=== PATIENT | male | born 1945 | race Caucasian/White ===

== ENCOUNTER 2021-04-06 15:05 | Outpatient (CLI) | payer MEDICARE, OTHER, SELFPAY ==
--- NOTE | 2021-04-06 15:11 | US_ITS ---
WS: [id number] SCROTAL ULTRASOUND EXAMINATION CLINICAL INFORMATION: MASS OF LEFT TESTICLE COMPARISON: None. FINDINGS: TESTES Scrotal skin thickening worse in the left. Normal in size and echotexture, without focal lesion. Slightly increased vascularity left testicle consistent with mild orchitis Right testes size: 3.1 cm x 2.7 cm x 2.4 cm. Left testes size: 3.7 cm x cm x cm. EPIDIDYMIDES Left spermatocele measuring 12 x 6 mm. Small left spermatocele measuring 2.4 x 6.9 mm Enlarged left e pididymis with edema and increased vascularity. Additional enlargement of the right epididymis suspicious for right epididymitis . HYDROCELE Moderate bilateral hydroceles with debris on the left. VARICOCELE None. OTHER FINDINGS None. US/US scrotum [id number] IMPRESSION: 1. Left scrotal skin thickening 2. Moderate bilateral hydroceles worse in the left with debris. 3. Enlarged left epididymis with increased vascularity consistent with epididy mitis and mild left orchitis. 4. Enlarged right epididymis suspicious for epididymitis. 5. Normal right testicle. 6. Left spermatocele measuring 1.2 x 0.6 cm
== END 2021-04-06 15:06 | disposition home or self-care (01) ==
LOC: RAD 15:10
PROVIDERS: Visit Provider Family Medicine
DX: N50.89 Other specified disorders of the male genital organs (principal); N43.3 Hydrocele, unspecified; N43.41 Spermatocele of epididymis, single
CPT/HCPCS: 76870

== ENCOUNTER 2022-05-17 12:53 | Emergency (ER) | payer MEDICARE, OTHER, SELFPAY ==
[2022-05-17 12:58] VITALS: BP 195/88; PULSE 58; RESP 18; TEMP 36.8; O2SAT 98; BMI 27.1
[2022-05-17 13:02] VITALS: BP 169/77; PULSE 58; RESP 18; TEMP 36.8; O2SAT 98
--- NOTE | 2022-05-17 13:36 | XRR_ITS ---
PROCEDURE INFORMATION: Exam: XR Chest Exam date and time: 05/17/2022 1:42 PM Age: 77 years old Clinical indication: Other: Hypertension TECHNIQUE: Imaging protocol: Radiologic exam of the chest. Views: 1 view. COMPARISON: No relevant prior studies available. FINDINGS: Lungs: Minimal scarring left mid lung. Clear right lung. Pleural spaces: Unremarkable. No pleural effusion. No pneumothorax. Heart/Mediastinum: Unremarkable. No cardiomegaly. Bones/joints: Unremarkable. XR/XR chest 1V portable [id number] IMPRESSION: No acute findings. The
--- NOTE | 2022-05-17 13:36 | W.ED.GENADLT ---
Documented by User: MARCY Hanson 05/17/22 16:11 HPI - General Adult General: Chief complaint: General Medical Stated complaint: High blood pressure, soreness in chest, numbness Time Seen by Provider: 05/17/22 13:12 Source: patient and family Mode of arrival: ambulatory Limitations: no limitations History of Present Illness: Patient is a very nice 77-year-old male who presents to ED today with a complaint of elevated blood pressures that have been present over the past several months. Patient states he takes metoprolol, amlodipine, lisinopril daily for hypertension. He states over the past several months blood pressure consistently is running 150s/70s. Patient is very compliant and checks his blood pressure daily and follows up every 30 days with his primary care provider at [facility] in [place]. Patient states earlier today he had an episode that lasted 2 to 3 minutes where his right shoulder felt sore and he had some paresthesias from his elbow to the wrist. He states he was using the extremity when symptoms occurred and he states they went away with rest. He currently is not complaining of any paresthesias, numbness, tingling, loss of sensation, or weakness to the arm or any of the other extremities. Blood pressure upon arrival was 190s/80s. With rest and during my initial examination blood pressure is currently 160s/70s. He complains of a very minor headache. When asked about chest pain he states his chest feels a little sore but does not complain of pain. No shortness of breath or difficulty breathing. Onset (ago): hour(s) Severity: mild Pain Consistency: now resolved Associated symptoms: Reports chest pain ( soreness ); Deny dyspnea, headache(s), malaise, rash, palpitations or syncope Treatments prior to arrival: none Review of Systems Const: Denies: fever(s), chills, body aches, fatigue or malaise Eyes: Denies: change in vision or blurry vision Card: Reports: chest pain ( soreness ); Denies: palpitations, irregular heart rhythm, edema, swelling of feet/ankles, lightheadedness, syncope, pre-syncope, dyspnea on exertion, orthopnea, leg pain with exertion or acrocyanosis Resp: Denies: dyspnea, productive cough, non-productive cough, wheezing, pain on inspiration, hemoptysis or chest congestion GI: Denies: abdominal pain : Denies: flank pain, dysuria or hematuria Musc: Reports: joint pain (reports R shoulder feels sore-hx of arthritis ); Denies: neck pain, back pain, extremity pain, extremity swelling, joint swelling, joint redness, joint warmth or limited range of motion Skin/Breast: Denies: rash Neuro: Reports: sensory changes (2-3 mins from R elbow to wrist; gone now); Denies: headache(s), weakness in extremities, lack of coordination, difficulty walking or dizziness Physical Exam Const: COMMON NORMALS: no acute distress, average body habitus, patient oriented x3, no limitations, healthy appearing, alert and well nourished GENERAL APPEARANCE: cooperative ORIENTATION/CONSCIOUSNESS: Yes awake, Yes oriented to person, Yes oriented to place and Yes oriented to time HENMT: COMMON NORMALS: normocephalic and atraumatic HEAD & SCALP: normal to inspection, normocephalic and atraumatic Eye: GENERAL EYE: appearance normal, both eyes and all related structures Neck/C-Spine: COMMON NORMALS: full ROM, no lymphadenopathy, supple and no meningeal signs Chest: COMMONS NORMALS: normal inspection of the chest and normal palpation of entire chest wall Resp: COMMON NORMALS: normal respiratory effort and clear to auscultation bilaterally AUSCULTATION: clear to auscultation bilaterally Cardio: COMMON NORMALS: regular rate and regular rhythm RATE: regular rate RHYTHM: regular rhythm GI: COMMON NORMALS: Normal to inspection, nondistended, normoactive bowel sounds present, Soft to palpation, non-tender, No hepatosplenomegaly present and no masses PALPATION: Yes Soft to palpation and Yes No hepatosplenomegaly present : COMMON NORMALS: Yes no CVA tenderness BLADDER/KIDNEY EXAM: Yes no CVA tenderness Back/Pelvis: COMMON NORMALS: no CVA tenderness, thoracic and lumbar spine normal to inspection, no thoracic nor lumbar tenderness and thoraco-lumbar ROM normal Extremity: COMMON NORMALS: normal to inspection, full ROM, capillary refill normal, no joint enlargement, no clubbing, cyanosis or edema, no calf tenderness and no pedal edema GENERAL: Yes normal exam except as noted Neuro: PEYTON COMA SCALE: document GCS findings [facility] coma scale eye opening: Spontaneous [facility] coma scale verbal response: Orientated [place] coma scale motor response: Obey commands [facility] coma scale total score: 15 COMMON NORMALS: patient oriented x3, CN's II-XII intact bilaterally, moves all extremities, no focal motor deficits, no sensory deficits noted and gait normal SENSORIUM/ORIENTATION: Yes alert, Yes oriented to person, Yes oriented to place and Yes oriented to time MENINGEAL SIGNS: Yes no meningeal signs SPEECH: speech normal SENSORY EXAM: Yes other (normal) MOTOR EXAM: 5/5 motor strength present throughout Skin: COMMON NORMALS: no rashes or lesions noted GENERAL SKIN EXAM: no rashes or lesions noted Course Vital Signs: Vital signs: Vital Signs Temperature 98.2 F 05/17/22 14:57 Pulse Rate 57 L 05/17/22 17:22 Respiratory Rate 16 05/17/22 17:22 Blood Pressure 149/77 05/17/22 17:22 Pulse Oximetry 97 05/17/22 17:22 Oxygen Delivery Me thod 05/17/22 17:22 MDM - General Adult Medical Decision Making Patient was initially started from one of our vertical flow rooms as there were no medical beds available. Once a bed became available patient was moved and a physician will assume care. Lab Data : 05/17/22 13:50 05/17/22 13:50 Radiology Impressions Chest X-Ray 05/17/22 13:36 IMPRESSION: No acute findings. The Laboratory Results WBC 6.9 10^3/uL (4.0-10.0) 05/17/22 13:50 RBC 4.87 10^6/uL (4.1-5.3) 05/17/22 13:50 Hgb 14.5 g/dL (11.7-16.6) 05/17/22 13:50 Hct 43.3 % (42.0-52.0) 05/17/22 13:50 MCV 88.9 fl (80-94) 05/17/22 13:50 MCH 29.8 pg (28.0-34.0) 05/17/22 13:50 MCHC 33.5 g/dL (30.0-36.0) 05/17/22 13:50 RDW 12.8 % (12.1-15.1) 05/17/22 13:50 Plt Count 315 10^3/cmm (130-400) 05/17/22 13:50 MPV 9.6 fL (7.4-10.4) 05/17/22 13:50 Neut % (Auto) 45.0 % 05/17/22 13:50 Lymph % (Auto) 42.4 % 05/17/22 13:50 Alpine % (Auto) 7.8 % 05/17/22 13:50 Eos % (Auto) 3.8 % 05/17/22 13:50 Baso % (Auto) 0.9 % 05/17/22 13:50 Neut # (Auto) 3.11 10^3/uL (1.8-7.7) 05/17/22 13:50 Lymph # (Auto) 2.9 10^3/uL (0.8-4.8) 05/17/22 13:50 [place]pine # (Auto) 0.5 10^3/uL (0.2-0.9) 05/17/22 13:50 Eos # (Auto) 0.3 10^3/uL (0.0-0.8) 05/17/22 13:50 Baso # (Auto) 0.1 10^3/uL (0.0-0.1) 05/17/22 13:50 Nucleated RBC % (auto) 0 % 05/17/22 13:50 Nucleated RBCs # 0.0 /100WBC 05/17/22 13:50 Sodium 139 mmol/L (136-145) 05/17/22 13:50 Potassium 4.2 mmol/L (3.5-5.1) 05/17/22 13:50 Chloride 101 mmol/L (98-107) 05/17/22 13:50 Carbon Dioxide 27 mmol/L (22-29) 05/17/22 13:50 Anion Gap 15.2 (5-19) 05/17/22 13:50 BUN 21 mg/dL (8-23) 05/17/22 13:50 Creatinine 1.2 mg/dL (0.7-1.2) 05/17/22 13:50 GFR Calculation Not Reportable 05/17/22 13:50 Glucose 88 mg/dL (65-115) 05/17/22 13:50 Calculated Osmolality 290 mOsm/kg (285-295) 05/17/22 13:50 Calcium 9.3 mg/dL (8.5-10.5) 05/17/22 13:50 Total Bilirubin 0.3 mg/dL (0.15-1.2) 05/17/22 13:50 AST 20 U/L (0-40) 05/17/22 13:50 ALT 16 U/L (0-41) 05/17/22 13:50 Alkaline Phosphatase 62 U/L (40-130) 05/17/22 13:50 Troponin T Baseline 21 ng/L (0-15) H 05/17/22 13:50 Troponin T 120 Minute 17.27 ng/L (0-15) H 05/17/22 15:33 Delta Troponin T -3.73 ABS# (0-10) L 05/17/22 15:33 Total Protein 7.6 g/dL (6.6-8.7) 05/17/22 13:50 Albumin 4.6 g/dL (3.5-5.2) 05/17/22 13:50 Globulin 3.0 g/dL (1.3-4.6) 05/17/22 13:50 Urine Color Yellow (Yellow) 05/17/22 13:40 Urine Appearance Clear (CLEAR) 05/17/22 13:40 Urine pH 6 (5-7) 05/17/22 13:40 Ur Specific [place] 1.005 (1.005-1.030) 05/17/22 13:40 Urine Protein Neg (Negative) 05/17/22 13:40 Urine Glucose (UA) Norm (Normal) 05/17/22 13:40 Urine Ketones Negative (Negative) 05/17/22 13:40 Urine Blood Neg (Negative) 05/17/22 13:40 Urine Nitrate Negative (Negative) 05/17/22 13:40 Urine Bilirubin Neg (Negative) 05/17/22 13:40 Urine Urobilinogen Norm mg/dL (Negative) 05/17/22 13:40 Ur Leukocyte Esterase Negative (Negative) 05/17/22 13:40 Discharge Plan Discharge Patient Disposition: Home Clinical Impression: Benign essential HTN, Atypical chest pain Condition: Stable Prescriptions: New hydrochlorothiazide 25 mg tablet 25 mg PO DAILY Qty: 14 0RF No Action fenofibrate micronized 134 mg capsule 134 mg PO QAM amlodipine 10 mg tablet 10 mg PO QAM ibuprofen 200 mg Tablet 600 mg PO QAM omeprazole 20 mg capsule,delayed release(DR/EC) 20 mg PO QAM metoprolol succinate 25 mg tablet extended release 24 hr 25 mg PO QAM lisinopril 40 mg tablet 40 mg PO QAM Flonase 50 mcg/actuation [place],Suspension 2 spray INTRANASAL DAILY Rx Instructions: administer into each nostril loratadine 10 mg tablet 10 mg PO QAM Vitamin D3 25 mcg (1,000 unit) Tablet 25 mcg PO QAM Tart Romero Extract 1,000 mg Capsule 1,000 mg PO QAM Discharge Orders: Discharge ED (Routine); Ordered 05/17/22 Ordered By: Miguel Fontanez Patient Instructions: Opioid Safety Activity Restrictions/Additional Instructions: Continue all previously prescribed medications and add hydrochlorothiazide 25 mg once daily. Case management make arrangements for her to have an outpatient cardiac stress test. Follow-up with your primary care doctor within the next 7 to 10 days to recheck your blood pressure and recheck basic metabolic profile since starting the hydrochlorothiazide. Return if you have further problems. Coding Level of Care Code ED Woven [employer] Sh[employer] Assembler for Chg Fwd Exam Comprehensive Documented by User: Miguel Fontanez DO 05/18/22 06:08 HPI - General Adult General: Chief complaint: General Medical Stated complaint: High blood pressure, soreness in chest, numbness Time Seen by Provider: 05/17/22 13:12 History of Present Illness: Patient is a very nice 77-year-old male who presents to ED today with a complaint of elevated blood pressures that have been present over the past several months. Patient states he takes metoprolol, amlodipine, lisinopril daily for hypertension. He states over the past several months blood pressure consistently is running 150s/70s. Patient is very compliant and checks his blood pressure daily and follows up every 30 days with his primary care provider at [facility] in [place]. Patient states earlier today he had an episode that lasted 2 to 3 minutes where his right shoulder felt sore and he had some paresthesias from his elbow to the wrist. He states he was using the extremity when symptoms occurred and he states they went away with rest. He currently is not complaining of any paresthesias, numbness, tingling, loss of sensation, or weakness to the arm or any of the other extremities. Blood pressure upon arrival was 190s/80s. With rest and during my initial examination blood pressure is currently 160s/70s. He complains of a very minor headache. When asked about chest pain he states his chest feels a little sore but does not complain of pain. No shortness of breath or difficulty breathing. 77-year-old male who was initially seen by the midlevel. Presents complaining of elevated blood pressure. He had brief episode of chest discomfort. He is complaining more of discomfort in his arm. Particularly when he raises left arm he had pain shooting down the arm. Although this is resolved he does have a minor headache at this time. He has not noticed any chest pain with exertion. Physical Exam Neuro: PEYTON COMA SCALE: document GCS findings [place] coma scale total score: 15 Course Vital Signs: Vital signs: Vital Signs Temperature 98.2 F 05/17/22 14:57 Pulse Rate 57 L 05/17/22 17:22 Respiratory Rate 16 05/17/22 17:22 Blood Pressure 149/77 05/17/22 17:22 Pulse Oximetry 97 05/17/22 17:22 Oxygen Delivery Me thod 05/17/22 17:22 MDM - General Adult Medical Decision Making Patient was initially started from one of our vertical flow rooms as there were no medical beds available. Once a bed became available patient was moved and a physician will assume care. EKG labs and chest x-ray reviewed as found on the chart. We will start the patient on hydrochlorothiazide and have him follow-up with his primary care doctor within the next week to recheck blood pressure and BMP. Return to the emergency room has any recurrence of symptoms. Medical Records I reviewed the patient's medical records. Lab Data I reviewed the patient's lab results. : 05/17/22 13:50 05/17/22 13:50 Radiology Impressions Chest X-Ray 05/17/22 13:36 IMPRESSION: No acute findings. The Laboratory Results WBC 6.9 10^3/uL (4.0-10.0) 05/17/22 13:50 RBC 4.87 10^6/uL (4.1-5.3) 05/17/22 13:50 Hgb 14.5 g/dL (11.7-16.6) 05/17/22 13:50 Hct 43.3 % (42.0-52.0) 05/17/22 13:50 MCV 88.9 fl (80-94) 05/17/22 13:50 MCH 29.8 pg (28.0-34.0) 05/17/22 13:50 MCHC 33.5 g/dL (30.0-36.0) 05/17/22 13:50 RDW 12.8 % (12.1-15.1) 05/17/22 13:50 Plt Count 315 10^3/cmm (130-400) 05/17/22 13:50 MPV 9.6 fL (7.4-10.4) 05/17/22 13:50 Neut % (Auto) 45.0 % 05/17/22 13:50 Lymph % (Auto) 42.4 % 05/17/22 13:50 [place] % (Auto) 7.8 % 05/17/22 13:50 Eos % (Auto) 3.8 % 05/17/22 13:50 Baso % (Auto) 0.9 % 05/17/22 13:50 Neut # (Auto) 3.11 10^3/uL (1.8-7.7) 05/17/22 13:50 Lymph # (Auto) 2.9 10^3/uL (0.8-4.8) 05/17/22 13:50 [place] # (Auto) 0.5 10^3/uL (0.2-0.9) 05/17/22 13:50 Eos # (Auto) 0.3 10^3/uL (0.0-0.8) 05/17/22 13:50 Baso # (Auto) 0.1 10^3/uL (0.0-0.1) 05/17/22 13:50 Nucleated RBC % (auto) 0 % 05/17/22 13:50 Nucleated RBCs # 0.0 /100WBC 05/17/22 13:50 Sodium 139 mmol/L (136-145) 05/17/22 13:50 Potassium 4.2 mmol/L (3.5-5.1) 05/17/22 13:50 Chloride 101 mmol/L (98-107) 05/17/22 13:50 Carbon Dioxide 27 mmol/L (22-29) 05/17/22 13:50 Anion Gap 15.2 (5-19) 05/17/22 13:50 BUN 21 mg/dL (8-23) 05/17/22 13:50 Creatinine 1.2 mg/dL (0.7-1.2) 05/17/22 13:50 GFR Calculation Not Reportable 05/17/22 13:50 Glucose 88 mg/dL (65-115) 05/17/22 13:50 Calculated Osmolality 290 mOsm/kg (285-295) 05/17/22 13:50 Calcium 9.3 mg/dL (8.5-10.5) 05/17/22 13:50 Total Bilirubin 0.3 mg/dL (0.15-1.2) 05/17/22 13:50 AST 20 U/L (0-40) 05/17/22 13:50 ALT 16 U/L (0-41) 05/17/22 13:50 Alkaline Phosphatase 62 U/L (40-130) 05/17/22 13:50 Troponin T Baseline 21 ng/L (0-15) H 05/17/22 13:50 Troponin T 120 Minute 17.27 ng/L (0-15) H 05/17/22 15:33 Delta Troponin T -3.73 ABS# (0-10) L 05/17/22 15:33 Total Protein 7.6 g/dL (6.6-8.7) 05/17/22 13:50 Albumin 4.6 g/dL (3.5-5.2) 05/17/22 13:50 Globulin 3.0 g/dL (1.3-4.6) 05/17/22 13:50 Urine Color Yellow (Yellow) 05/17/22 13:40 Urine Appearance Clear (CLEAR) 05/17/22 13:40 Urine pH 6 (5-7) 05/17/22 13:40 Ur Specific [place] 1.005 (1.005-1.030) 05/17/22 13:40 Urine Protein Neg (Negative) 05/17/22 13:40 Urine Glucose (UA) Norm (Normal) 05/17/22 13:40 Urine Ketones Negative (Negative) 05/17/22 13:40 Urine Blood Neg (Negative) 05/17/22 13:40 Urine Nitrate Negative (Negative) 05/17/22 13:40 Urine Bilirubin Neg (Negative) 05/17/22 13:40 Urine Urobilinogen Norm mg/dL (Negative) 05/17/22 13:40 Ur Leukocyte Esterase Negative (Negative) 05/17/22 13:40 Discharge Plan Discharge Patient Disposition: Home Clinical Impression: Benign essential HTN, Atypical chest pain Condition: Stable Prescriptions: New hydrochlorothiazide 25 mg tablet 25 mg PO DAILY Qty: 14 0RF No Action fenofibrate micronized 134 mg capsule 134 mg PO QAM amlodipine 10 mg tablet 10 mg PO QAM ibuprofen 200 mg Tablet 600 mg PO QAM omeprazole 20 mg capsule,delayed release(DR/EC) 20 mg PO QAM metoprolol succinate 25 mg tablet extended release 24 hr 25 mg PO QAM lisinopril 40 mg tablet 40 mg PO QAM Flonase 50 mcg/actuation [place],Suspension 2 spray INTRANASAL DAILY Rx Instructions: administer into each nostril loratadine 10 mg tablet 10 mg PO QAM Vitamin D3 25 mcg (1,000 unit) Tablet 25 mcg PO QAM Tart Romero Extract 1,000 mg Capsule 1,000 mg PO QAM Discharge Orders: Discharge ED (Routine); Ordered 05/17/22 Ordered By: Miguel Fontanez Patient Instructions: Opioid Safety Activity Restrictions/Additional Instructions: Continue all previously prescribed medications and add hydrochlorothiazide 25 mg once daily. Case management make arrangements for her to have an outpatient cardiac stress test. Follow-up with your primary care doctor within the next 7 to 10 days to recheck your blood pressure and recheck basic metabolic profile since starting the hydrochlorothiazide. Return if you have further problems. Coding Level of Care Code ED W[employer] Sh[employer] Assembler for Lizg Fwd Exam Comprehensive
[2022-05-17 13:49] LABS: Add Urine Microscopic? NO; Charge for UA Resulting for Rev
[2022-05-17 13:51] LABS: Blood Urine Neg (Negative); Glucose Urine UA Norm (Normal); Ketones Urine Negative (Negative); Protein Urine Neg (Negative); Specific Gravity, Urine 1.005 (1.005-1.030); Urine Appearance Clear (CLEAR); Urine Color Yellow (Yellow); pH Urine 6 (5-7)
[2022-05-17 13:52] LABS: Bilirubin Urine Neg (Negative); Leukocyte Esterase Urine Negative (Negative); Nitrate Urine Negative (Negative); Urobilinogen Urine Norm (Negative)
[2022-05-17 14:02] LABS: Basophils # 0.1 10^3/uL (0.0-0.1); Basophils % 0.9 %; Eosinophils # 0.3 10^3/uL (0.0-0.8); Eosinophils % 3.8 %; Hematocrit 43.3 % (42.0-52.0); Hemoglobin 14.5 g/dL (11.7-16.6); Lymphocytes # 2.9 10^3/uL (0.8-4.8); Lymphocytes % 42.4 %; Mean Corpuscular HGB Conc 33.5 g/dL (30.0-36.0); Mean Corpuscular Hemoglobin 29.8 pg (28.0-34.0); Mean Corpuscular Volume 88.9 fl (80-94); Mean Platelet Volume 9.6 fL (7.4-10.4); Monocytes # 0.5 10^3/uL (0.2-0.9); Monocytes % 7.8 %; Neutrophils # 3.11 10^3/uL (1.8-7.7); Nucleated Red Blood Cells % 0 %; Platelet Count 315 10^3/cmm (130-400); Red Blood Count 4.87 10^6/uL (4.1-5.3); Red Cell Distribution Width 12.8 % (12.1-15.1); White Blood Count 6.9 10^3/uL (4.0-10.0)
[2022-05-17 14:16] LABS: Alanine Aminotransferase 16 U/L (0-41); Albumin Level 4.6 g/dL (3.5-5.2); Alkaline Phosphatase 62 U/L (40-130); Anion Gap 15.2 (5-19); Aspartate Amino Transferase 20 U/L (0-40); Blood Urea Nitrogen 21 mg/dL (8-23); Calcium 9.3 mg/dL (8.5-10.5); Carbon Dioxide 27 mmol/L (22-29); Chloride 101 mmol/L (98-107); Glucose 88 mg/dL (65-115); Osmolality Calculated 290 mOsm/kg (285-295); Potassium 4.2 mmol/L (3.5-5.1); Sodium 139 mmol/L (136-145); Total Bilirubin 0.3 mg/dL (0.15-1.2); Total Protein 7.6 g/dL (6.6-8.7)
[2022-05-17 14:22] LABS: Troponin(5th) Baseline 21 ng/L (0-15)
[2022-05-17 14:57] VITALS: BP 171/75; PULSE 52; RESP 18; TEMP 36.8; O2SAT 95
--- NOTE | 2022-05-17 15:59 | ECG_ITS ---
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 Measurements Intervals [place] Rate: 50 P: 76 MO: 166 QRS: 44 QRSD: 173 T: 203 QT: 542 QTc: 494 Interpretive Statements SINUS BRADYCARDIA LEFT BUNDLE BRANCH BLOCK [120+ ms QRS DURATION, 80+ ms Q/S IN V1/V2, 85+ ms R IN I/aVL/V5/V6] No previous ECG available for comparison Electronically Signed On 05-17-2022 17:51:28 CDT by Humphrey Snyder M.D. [email or web address]
[2022-05-17 16:17] VITALS: BP 195/95; PULSE 58; RESP 16; O2SAT 99
[2022-05-17] MEDS: hyDRALAzine 20 mg/mL INJ 1 mL 10 MG IVP (16:19)
[2022-05-17] MEDS: amlodipine 5 mg Tablet PO (16:19)
[2022-05-17 17:22] VITALS: BP 149/77; PULSE 57; RESP 16; O2SAT 97
[2022-05-17 17:34] LABS: Troponin 5 2HR 17.27 ng/L (0-15)
[2022-05-17 17:38] LABS: Troponin 5 2HR Delta -3.73 ABS# (0-10)
--- NOTE | 2022-06-06 16:09 | DCPLANNER ---
late entry - corrections caseworker had message to schedule an outpatient stress test for patient. dairy bar manager attempted to contact patient to confirm that patient wanted the stress test and to confirm who patient sees for primary care. dairy bar manager was unable to speak with patient at this time.
== END 2022-05-17 17:58 | disposition home or self-care (01) ==
PROVIDERS: Physician Assistant; Emergency Provider Family Medicine
DX: I10 Essential (primary) hypertension (principal); R07.89 Other chest pain
CPT/HCPCS: 71045; 80053; 81003; 84484; 85025; 93005; 96374; 99285; J0360

== ENCOUNTER → 2022-06-15 14:28 | Outpatient (BNVA) | payer MEDICARE, OTHER, SELFPAY | PROVIDERS: PCP Nurse Practitioner Family; Visit Provider Internal Medicine Cardiovascular Disease | DX: R94.39 Abnormal result of other cardiovascular function study (principal); E78.5 Hyperlipidemia, unspecified; I10 Essential (primary) hypertension; Z87.891 Personal history of nicotine dependence; R07.9 Chest pain, unspecified | CPT/HCPCS: 80048; 85025; 85610; 86850; 86900; 99205 ==

== ENCOUNTER 2022-06-20 06:02 | Outpatient (CLI) | payer MEDICARE, OTHER, SELFPAY ==
[2022-06-20] VITALS (40 sets, daily range): BP systolic 108–203; BP diastolic 65–99; PULSE 49–71; RESP 16–29; TEMP 36.5–36.6; O2SAT 94–98; BMI 27.3
--- NOTE | 2022-06-20 06:00 | XACV_ITS ---
Exam Room: 2 Ht: 165 cm Wt: 74 kg BSA: 1.86 m2 Gender: Male : 1945 Any Known Allergies: Other Exam Priority: Routine Procedure(s): Procedure Description: Diagnostic procedure Procedure Description: PCI procedure Procedure Description: Left Heart Catheterization Procedure Description: Drug Eluting Coronary Stent Procedure Description: PTCA Procedure Description: Coronary Angiography Procedure Description: Pressure Wire Cristhian RAUSCH; Diagnostic Cath Status: Elective Diagnostic Findings * The left main is a medium caliber vessel with no significant stenotic lesions. * The left anterior descending artery is a medium caliber vessel which was found to have minimal intimal irregularities proximally. The mid segment, near to the origin of the first diagonal branch was found to have around 60 to 70% lesion. Some disease is also noted in the proximal segment of the first diagonal branch. The first and the second diagonal branches were found to have mild stenosis at the ostium. * The circumflex artery is a medium caliber vessel which was found to have minimal intimal irregularities proximally. No other significant stenotic lesions were noted. * The intermedius artery(high obtuse marginal) was a small to medium caliber vessel with an ostial around 50% narrowing. * The right coronary artery is a medium caliber dominant vessel which is found to have minimal intimal irregularities proximally. Just before the terminal brachial bifurcation, there is a 30% eccentric narrowing. PCI Status: Elective PCI Indication: Other Interventional Findings * Procedure detail: We engaged left main artery with XB 3.5 guide catheter. IV heparin was administered to maintain ACT above 250 S. iFR wire after normalization was advanced into distal LAD. iFR value of 0.85 was obtained and that confirmed ischemia. iFR wire pullback confirmed significant gradient in mid LAD. We predilated stenosis with 2.5 x 12 mm noncompliant balloon. This was followed by placement of 2.75 x 15 mm resolute Artemio drug-eluting stent. At this time final angiogram was performed that showed excellent stent expansion, no residual stenosis and ALDEN-3 flow. Patient left the Internal Communications Writer in a stable condition.. * Proximal Left Anterior Descendin% stenosis treated with a AB TREK 2.50X12 RX BALLOON, and MDT R ARTEMIO 2.75X15 LIA. 0% residual stenosis, ALDEN: 3 flow. Conclusions 1. 77-year-old white male with history of type 2 diabetes, high blood pressure, dyslipidemia, presenting with complaints of chest pain and dyspnea exertion. Myocardial perfusion imaging revealing areas of reversible defects in the distribution of the left and descending artery and right coronary artery. In view of the patient's ongoing symptoms, in order to further evaluate the coronary status, a cardiac catheterization was recommended. Patient underwent left heart catheterization with left and right coronary angiogram. The findings are as follows. 2. Moderately severe disease in the mid LAD. Mild diffuse disease in the other vessels. LVEDP of 14 mmHg. 3. Based on the above findings, it would be appropriate to consider an IFR of the LAD lesion and possible intervention. I discussed and reviewed the cardiac catheterization data with Dr. Snyder. Dr. Snyder concurred with this plan and took over further management of this patient at this point. 4. Significant ischemic IFR value of 0.85 obtained for mid LAD stenosis. Status post successful revascularization with LIA x1. 5. Proximal Left Anterior Descending was treated with a Balloon, and Drug Eluting Stent. Recommendations * Dual antiplatelet therapy for at least 1 year. * High intensity statin therapy. * Outpatient cardiology follow-up in 4-week. Interventional RX Recommendation: PCI w/o planned CABG Diagnostic RX Recommendation: PCI w/o planned CABG LV EDP: 14 mmHg Left Ventriculography Findings: * The LVEDP was 14 mmHg. LV gram was not performed because of the limitations on dye usage. Pressures Phase:Rest AO : 159 / 69 ( 99 ) @ 8:30:00 AM 152 / 66 ( 96 ) @ 8:30:00 AM 145 / 70 ( 98 ) @ 8:54:00 AM LV : 151 / 1 / 14 @ 8:30:00 AM 154 / 2 / 16 @ 8:30:00 AM Valves Phase:DefaultPhase AV : 0.0 @ 8:16:38 AM AV Mean Gradient: 0.0 @ 8:16:38 AM Clinical Evaluation EBL: 5mL-10mL Procedural Details Procedure Consent Obtained. Admit Source: Out Patient. Pre-Procedure Time Out. Identified patient by full name and date of as verbalized by the patient/guarantor. Does the consent match the physician's order: Yes. Accurate & Complete Informed Consent: Yes. Inpatient/Outpatient History & Physical on Chart: Yes. If H&P is completed, is and addenduem needed: N/A; If yes, is the addendum complete: N/A. Visualize and Verify Site with Patient/Guarantor: N/A. Relevant Radiology Images available: N/A. Procedure started. [facility] Clinical Fraility Score: 3: Managing Well. Internal Communications Writer Indications: Worsening Angina. Chest Pain Symptom Assessment: Typical Angina Symptoms. Correct patient, site and procedure confirmed by cath team. Current diagnosis: Chest Pain, Abnormal stress test. PERRLA. Strong, equal hand promotion manager bilaterally. Lungs clear x 5 lobes. IV Site on Arrival: 20 gauge in the right anticubital. IV Fluids: 0.9% NaCl at KVO. 0 mL infused prior to lab coordinator. Pre Procedural Pulses: bilateral posterior tibial was 3+. Pre Procedural Pulses: bilateral dorsalis pedis was 3+. Pre Procedural Pulses: bilateral radial was 3+. Oxygen started at 2liters/min via nasal canula. right radial was prepped with chloroprep then draped in the usual sterile fashion. right groin was prepped with chloroprep then draped in the usual sterile fashion. Baseline sample Acquired. HR: 65 BPM. Physician notified. Physician arrived. Physician scrubbed in. Immediate Pre-Procedure Time Out. Correct Patient: Yes; Correct Procedure: Yes; Correct Site: Yes; Correct Patient Position: Yes; Correct Supplies: Yes; Dried Flammable Prep: Yes; Blood Products Available: Yes;. Hemodynamic formulas in Rest were re-calculated based on hemoglobin value from 06/15/2022 4:10:00 PM. Lidocaine 1% infiltrated to the right radial. Arterial access obtained. A 5 palestinian Darion catheter in over wire. Multiple views taken of left coronary artery. Catheter redirected to the RCA. Catheter removed over the exchange wire. A 5 palestinian JR4 catheter in over wire. Multiple views taken of right coronary artery. Catheter removed over the exchange wire. A 5 palestinian Angled Pig catheter in over wire. Unable to cross aortic valve with pigtail catheter. Catheter removed over the exchange wire. A 5 palestinian Darion catheter in over wire. Wire out. EDP Sample taken: LV 151/1,14; HR: 56 BPM; SpO2: 97%. Pullback taken: LV 154/2,16; AO 159/69(99); Mean: 0mmHg, Peak to Peak: 0mmHg, SEP: 7sec/min; HR: 55 BPM; SpO2: 96%. Catheter removed over the exchange wire. Side port of sheath attached to Normal Saline flush at KVO to maintain patency. Dr. Snyder arrived to review cine films. Patient's family updated. Dr. Snyder scrubbed in to perform intervention. 6 palestinian XB 3 guide catheter was inserted over the wire. IFR pressure wire advanced through guide to lesion in proximal LAD. Pressurewire advanced across lesion to distal LAD. IFR result proximal LAD 0.85. Angiography performed. Runthrough guidewire was advanced through the guide catheter to lesion in the prox LAD. Guidewire advanced across lesion. Inflation number : 1 A AB TREK 2.50X12 RX BALLOON was prepped and advanced across the Prox LAD , then inflated to 10 RUTH for 0:21 seconds. Balloon out. Balloon inserted to lesion in the prox LAD. Balloon inserted to lesion in the prox LAD. Inflation Number : 2 A MARCK Mcneal ARTEMIO 2.75X15 LIA -Lot Number# [id number] was prepped and advanced across the Prox LAD. The stent was deployed at 12 RUTH for 0:16 seconds. EXP 12-21-2024. Stent balloon out over wire. Angiography performed, checking results. Wire out. Angiography performed, checking results. Guide catheter out. ACT drawn. Results 158 seconds. Therapeutic limits - pre-heparin administration 90-150 seconds and monitoring heparin during a vascular procedure >250 seconds. A TR Band was successful obtaining hemostatsis at the Right Radial artery insertion site. Post Procedure: Pulses reassessed and unchanged. PERRLA. Strong, equal hand promotion manager bilaterally. No VTE prophylaxis required. Medication's Wasted: Lidocaine 1% = 3 mL. Medication's Wasted: Nitro = 49.6 mg. Medication's Wasted: Other = Fentanyl 25 mcg. Medication's Wasted: Other = Versed 1 mg. Medication's Wasted: Heparin = 4000 unit. Total IV fluids: 84 mL. Post-op diagnosis: Severe proximal LAD stenosis, Status post PCI with 1 stent. Complications: None. Estimated blood loss: 5mL-10mL. Responsiveness - Normal response to verbal stimuli; alert and oriented, PERRLA. Airway - Unaffected, no intervention required; spontaneous ventilation. Circulation: W/N/L, pulses unchanged. Nausea/Vomiting: N/A. Procedure completed. Patient transferred by wheelchair to 1st floor. Vital chart was stopped. Access Site Site: Right Radial artery Sheath Size: 6 Fr Hemostasis Method: TR Band Hemostasis Success: Successful Procedure Medications Start: 7:07 AM Stop: 7:07 AM Medication: Versed Amount: 1 mg Route: I.V. Start: 7:07 AM Stop: 7:07 AM Medication: Fentanyl Amount: 50 mcg Start: 7:12 AM Stop: 7:12 AM Medication: Verapamil Amount: 5 mg Route: I.A. Start: 7:12 AM Stop: 7:12 AM Medication: Nitrogylcerin Amount: 200 mcg Route: I.A. Start: 7:13 AM Stop: 7:13 AM Medication: Versed Amount: 1 mg Route: I.V. Start: 7:15 AM Stop: 7:15 AM Medication: Heparin Amount: 5000 units Route: I.V. Start: 7:16 AM Stop: 7:16 AM Medication: Fentanyl Amount: 25 mcg Route: I.V. Start: 7:43 AM Stop: 7:43 AM Medication: Heparin Amount: 2000 units Route: I.V. Start: 7:44 AM Stop: 7:44 AM Medication: Versed Amount: 1 mg Route: I.V. Start: 7:55 AM Stop: 7:55 AM Medication: Heparin Amount: 1000 units Route: I.V. Start: 8:04 AM Stop: 8:04 AM Medication: Nitrogylcerin Amount: 200 mcg Route: I.C. Start: 8:09 AM Stop: 8:09 AM Medication: Plavix Amount: 600 mg Route: P.O. Start: 8:09 AM Stop: 8:09 AM Medication: Aspirin Amount: 325 mg Route: P.O. Start: 8:13 AM Stop: 8:13 AM Medication: Heparin Amount: 4000 units Route: I.V. I, the attending physician, have reviewed and verified all procedure medications. Yes, all medications given per verbal order History/Risk Factors Hypertension: Yes Peripheral Arterial Disease (PAD): No Myocardial Infarction (MO): No Obesity: No Renal Disease: No Tobacco Use: Former Prior Interventions PCI: No CABG: No Valve Surgery: No Report Signatures Interventional Workflow Finalized by Humphrey Snyder MD on 06/26/2022 12:07 AM Diagnostic Workflow Finalized by Dr Bhanu Morrow MD [facility] on 06/20/2022 01:51 PM
[2022-06-20] MEDS: diphenhydrAMINE 50 mg Capsule PO (06:36)
--- NOTE | 2022-06-20 07:00 | W.PM.OPSUD ---
Surgery/Procedure H&P Update DATE OF PROCEDURE: June 20, 2022 DATE H&P PERFORMED: 06/15/22 H&P UPDATE INFORMATION: I have reviewed H&P completed within last 30 days, I have examined patient prior to procedure, No changes to prior documentation and Changes to prior documentation as noted here PREOP DIAGNOSIS: ASHD/ Cardiomyopathy PLANNED PROCEDURE: Operation Date: 06/20/22 07:00 Proposed Procedures p [facility] [address],R93.1,R94.39(Not Applicable) - Bhanu Morrow MD PHYSICAL EXAM: alert, oriented x 3, clear to auscultation bilaterally and regular rate & rhythm AIRWAY EVAL/ANESTHESIA PLAN: normal airway, see other exam findings, ASA II, Monitored Anesthesia, Local Anesthesia, Risks, benefits & alternatives of sedation and/or procedure discussed and Patient agrees to continue as planned
[2022-06-20] MEDS: sodium chloride 0.9% 1,000 ML 100 ML IV ×2 (08:30→16:51)
--- NOTE | 2022-06-20 08:51 | PC.NURSE ---
received from cardiac slab inspector at 0830.report received.pt is alert and awake.denies pain at present.sb (50's) on monitor.right wrist with tr band on and inflated.right hand is warm to touch and with brisk capillary refill.palpable radial pulse noted distal to tr band.no hematoma noted.pt oriented to room environment.instructed in activity restrictions post radial artery procedure,and instructed to notify staff for any bleeding,pain,dizziness,bruising,chest pain,sob, or for any concerns at all.pt verb understanding of instruction
[2022-06-20] MEDS: lisinopril 20 mg Tablet 40 MG PO (09:52)
[2022-06-20] MEDS: metoprolol succinate ER (24 HR) 25 mg Tablet PO (09:53)
[2022-06-20] MEDS: pantoprazole DR 40 mg Tablet PO (09:53)
[2022-06-20] MEDS: cloNIDine 0.1 mg Tablet PO (09:54)
[2022-06-20] MEDS: isosorbide mononitrate ER 30 mg Tablet PO (09:54)
[2022-06-20] MEDS: cholecalciferol (vitamin D3) 1,000 unit Tablet 1000 UNIT PO (09:55)
[2022-06-20] MEDS: amlodipine 10 mg Tablet PO (09:55)
--- NOTE | 2022-06-20 14:23 | PC.NURSE ---
TR band removed at 1410. 2x2 dressing applied with tegaderm covering. No bleeding noted. No hematoma noted. Skin warm and dry. Patient instructed to limit weight on that wrist to 5lb. No pushing or pulling himself up. Verbalized understanding.
--- NOTE | 2022-06-20 16:41 | PC.NURSE ---
transfer to room 278-2 via w/c at this time.
--- NOTE | 2022-06-20 19:15 | PC.NURSE ---
Right radial cath site dressing is dry and intact. Site is soft, no hematoma present, right radial pulse is palpable, skin is warm and capillary refill <3seconds.
[2022-06-21 04:17] VITALS: BP 178/84; PULSE 60; RESP 20; TEMP 36.6; O2SAT 94
[2022-06-21] MEDS: amlodipine 10 mg Tablet PO (05:14)
[2022-06-21] MEDS: pantoprazole DR 40 mg Tablet PO (05:14)
[2022-06-21] MEDS: cholecalciferol (vitamin D3) 1,000 unit Tablet 1000 UNIT PO (05:14)
[2022-06-21] MEDS: lisinopril 20 mg Tablet 40 MG PO (05:14)
[2022-06-21 05:22] VITALS: BP 186/83; PULSE 47
[2022-06-21] MEDS: metoprolol succinate ER (24 HR) 25 mg Tablet PO (06:39)
[2022-06-21 07:37] VITALS: BP 188/88; PULSE 64; RESP 18; TEMP 36.7; O2SAT 95
[2022-06-21 08:10] VITALS: BP 168/78
[2022-06-21] MEDS: cloNIDine 0.1 mg Tablet PO (08:39)
[2022-06-21] MEDS: clopidogrel 75 mg Tablet PO (08:39)
[2022-06-21] MEDS: isosorbide mononitrate ER 30 mg Tablet PO (08:39)
--- NOTE | 2022-06-21 09:44 | PM.PN ---
Subjective Subjective: Patient underwent a cardiac catheterization yesterday. He was found to have hemodynamically significant stenosis in the mid LAD. Underwent PCI by Dr. Snyder. Currently is remaining stable. He was given IV hydration. Repeat creatinine this morning is 1.1 Medications: Medication Review Details: Current Medications Amlodipine Besylate (Amlodipine 10 Mg Tablet) 10 mg PO [facility] Last Admin: 06/21/22 05:14 Dose: 10 mg Clonidine HCl (Clonidine 0.1 Mg Tablet) 0.1 mg PO DAILY [facility] Last Admin: 06/21/22 08:39 Dose: 0.1 mg Clopidogrel Bisulfate (Clopidogrel 75 Mg Tablet) 75 mg PO DAILY [facility] Last Admin: 06/21/22 08:39 Dose: 75 mg Fluticasone Propionate (Fluticasone Nasal [place] 16gm Btl) 2 spray INTRANASAL DAILY PRN PRN Reason: SEASONAL ALLERGIES Ibuprofen (Ibuprofen 200 Mg Tablet) 600 mg PO QA PRN PRN Reason: mild pain Isosorbide Mononitrate (Isosorbide Mononitrate Er 30 Mg Tablet) 30 mg PO DAILY [facility] Last Admin: 06/21/22 08:39 Dose: 30 mg Lisinopril (Lisinopril 20 Mg Tablet) 40 mg PO [facility] Last Admin: 06/21/22 05:14 Dose: 40 mg Metoprolol Succinate (Metoprolol Succinate Er (24 Hr) 25 Mg Tablet) 25 mg PO [facility] Last Admin: 06/21/22 06:39 Dose: 25 mg Nitroglycerin (Nitroglycerin 0.4 Mg Sublingual Tablet) 0.4 mg SUBLINGUAL Q5M PRN PRN Reason: chest pain Non-Formulary Medication (Sour Romero Extract [Tart Romero Extract]) 1,000 mg PO [facility] Non-Formulary Medication (Fenofibrate Micronized) 134 mg PO [facility] Pantoprazole Sodium (Pantoprazole Dr 40 Mg Tablet) 40 mg PO [facility] Last Admin: 06/21/22 05:14 Dose: 40 mg Vitamin D (Cholecalciferol (Vitamin D3) 1,000 Unit Tablet) 1,000 unit PO [facility] Last Admin: 06/21/22 05:14 Dose: 1,000 unit Vitals/I&O/Wt Last Vital Signs Temp 98.0 F 06/21/22 07:37 Pulse 64 06/21/22 07:37 Resp 18 06/21/22 07:37 BP 168/78 06/21/22 08:10 Pulse Ox 95 06/21/22 07:37 O2 Del Method 06/21/22 07:37 06/20/22 06/21/22 06/21/22 22:59 06:59 14:59 Intake Total 1528.333 / 2007.333 120 / 2128.333 600 / 600 Balance 1528.333 / 2007.333 120 / 2128.333 600 / 600 Weight last 48 hrs Weight 164 lb Physical Exam Narrative: GENERAL: The patient is alert and oriented times three. Not in any acute distress. HEENT: No significant pallor, icterus or lymphadenopathy.Oral cavity: There are no mucous membrane lesions. NECK: Trachea appears to be central. No masses noted. No JVD or thyromegaly appreciated. RESPIRATORY: Chest is symmetrical. No intercostals muscle retraction or any accessory muscle activation. There is no chest wall tenderness. Breath sounds are heard bilaterally. No rales or rhonchi heard. No evidence of any consolidation. BREASTS: Deferred. HEART: The heart sounds are normal. No S3 or S4. No significant murmurs. No pericardial rub ABDOMEN: No vessel pulsations or distention. No tenderness. No organomegaly appreciated. Bowel sounds are normally heard. : Deferred. RECTAL: Deferred. LYMPHATIC: No lymphadenopathy noted in the neck. EXTREMITIES: No hematoma bleeding at the arterial puncture site. MUSCULOSKELETAL: No acute joint deformities or swelling SKIN: There are no significant rashes or ecchymosis NEUROPSYCHIATRIC: The patient is alert and oriented x3. Appears to be in a good mood. No tremors or rigidity noted. Data : 06/21/22 10:07 Other Labs: Laboratory Last Values Sodium 138 mmol/L (136-145) 06/21/22 10:07 Potassium 4.0 mmol/L (3.5-5.1) 06/21/22 10:07 Chloride 104 mmol/L (98-107) 06/21/22 10:07 Carbon Dioxide 23 mmol/L (22-29) 06/21/22 10:07 Anion Gap 15.0 (5-19) 06/21/22 10:07 BUN 16 mg/dL (8-23) 06/21/22 10:07 Creatinine 1.1 mg/dL (0.7-1.2) 06/21/22 10:07 GFR Calculation Not Reportable 06/21/22 10:07 Glucose 117 mg/dL (65-115) H 06/21/22 10:07 Calculated Osmolality 288 mOsm/kg (285-295) 06/21/22 10:07 Calcium 9.4 mg/dL (8.5-10.5) 06/21/22 10:07 A&P Assessment and plan (1) Atherosclerotic heart disease of [place] coronary artery with other forms of angina pectoris: Patient had a cardiac catheterization yesterday. He was found to have hemodynamically significant stenosis in the mid LAD. Underwent PCI. Currently seems to be stable. (2) Hypertension: Blood pressures are stage II. We will try to optimize the antihypertensive medications. (3) Hyperlipidemia: May continue on the current medications. (4) Chronic kidney disease: Repeat BMP today. Plan If the patient continues to remain stable, will be discharged home today. [facility]ointment at the [facility] next week with Ilda Junior Appointment with me in the office as scheduled Attestations Medical Necessity Statement*: Discharge home today Coding Level of Care Code Acute Director Of Strategic Marketing for Chg Fwd History Expanded Problem Focused Exam Expanded Problem Focused Medical Decision Making Moderate Complexity Diagnoses Atherosclerotic heart disease of [place] coronary artery with other forms of angina pectoris I25.118 Hypertension I10 Hyperlipidemia E78.5 Chronic kidney disease N18.9
[2022-06-21 10:34] LABS: Blood Urea Nitrogen 16 mg/dL (8-23); Calcium 9.4 mg/dL (8.5-10.5); Carbon Dioxide 23 mmol/L (22-29); Chloride 104 mmol/L (98-107); Glucose 117 mg/dL (65-115); Osmolality Calculated 288 mOsm/kg (285-295); Sodium 138 mmol/L (136-145)
[2022-06-21 11:27] VITALS: BP 131/70; PULSE 53; RESP 20; TEMP 36.8; O2SAT 91
== END 2022-06-21 14:59 | disposition home or self-care (01) ==
LOC: CCL 06:06 → CSU 13:22 → MEDSURG 14:59
PROVIDERS: Internal Medicine; PCP Nurse Practitioner Family; Visit Provider Internal Medicine Cardiovascular Disease
DX: I25.118 Atherosclerotic heart disease of native coronary artery with other forms of angina pectoris (principal); E78.5 Hyperlipidemia, unspecified; Z87.891 Personal history of nicotine dependence; I12.9 Hypertensive chronic kidney disease with stage 1 through stage 4 chronic kidney disease, or unspecified chronic kidney disease; N18.9 Chronic kidney disease, unspecified
CPT/HCPCS: 36415; 80048; 85347; 93458; 93571; 96360; 99152; 99153; C1725; C1769; C1874; C1887; C1894; C9600; J1644; J2250; J3010; J3490; J7030; Q0163; Q9967

== ENCOUNTER → 2022-06-28 13:56 | Outpatient (BNVA) | payer MEDICARE, OTHER, SELFPAY | PROVIDERS: PCP Nurse Practitioner Family; Visit Provider Nurse Practitioner Family | DX: I25.118 Atherosclerotic heart disease of native coronary artery with other forms of angina pectoris (principal); I10 Essential (primary) hypertension; Z87.891 Personal history of nicotine dependence | CPT/HCPCS: 99213; 99214 ==

== ENCOUNTER 2022-07-27 12:16 | Outpatient (CLI) | payer MEDICARE, OTHER, SELFPAY ==
[2022-07-27 13:26] LABS: Blood Urea Nitrogen 23 mg/dL (8-23); Calcium 8.9 mg/dL (8.5-10.5); Carbon Dioxide 26 mmol/L (22-29); Chloride 104 mmol/L (98-107); Glucose 106 mg/dL (65-115); NT Pro B Type Natriuretic Pept 606 pg/mL (0-450); Osmolality Calculated 294 mOsm/kg (285-295); Sodium 140 mmol/L (136-145)
[2022-07-27 13:29] LABS: Anion Gap 13.9 (5-19); Potassium 3.9 mmol/L (3.5-5.1)
== END 2022-07-27 12:17 | disposition home or self-care (01) ==
LOC: LAB 12:21
PROVIDERS: PCP Nurse Practitioner Family; Visit Provider Nurse Practitioner Family
DX: I10 Essential (primary) hypertension (principal); I25.118 Atherosclerotic heart disease of native coronary artery with other forms of angina pectoris
CPT/HCPCS: 80048; 83880

== ENCOUNTER → 2022-09-14 14:05 | Outpatient (BNVA) | payer MEDICARE, OTHER, SELFPAY | PROVIDERS: PCP Nurse Practitioner Family; Visit Provider Internal Medicine Cardiovascular Disease | DX: I25.118 Atherosclerotic heart disease of native coronary artery with other forms of angina pectoris (principal); E78.5 Hyperlipidemia, unspecified; R42 Dizziness and giddiness; I12.9 Hypertensive chronic kidney disease with stage 1 through stage 4 chronic kidney disease, or unspecified chronic kidney disease; N18.9 Chronic kidney disease, unspecified; Z87.891 Personal history of nicotine dependence | CPT/HCPCS: 99214 ==

== ENCOUNTER → 2023-03-22 15:03 | Outpatient (BNVA) | payer MEDICARE, OTHER, SELFPAY | PROVIDERS: PCP Nurse Practitioner Family; Visit Provider Internal Medicine Cardiovascular Disease | DX: I25.118 Atherosclerotic heart disease of native coronary artery with other forms of angina pectoris (principal); E78.5 Hyperlipidemia, unspecified; I12.9 Hypertensive chronic kidney disease with stage 1 through stage 4 chronic kidney disease, or unspecified chronic kidney disease; N18.9 Chronic kidney disease, unspecified; Z87.891 Personal history of nicotine dependence | CPT/HCPCS: 99214 ==

== ENCOUNTER → 2023-10-03 09:47 | Outpatient (BNVA) | payer MEDICARE, OTHER, SELFPAY | PROVIDERS: PCP Nurse Practitioner Family; Visit Provider Internal Medicine Cardiovascular Disease | DX: I25.118 Atherosclerotic heart disease of native coronary artery with other forms of angina pectoris (principal); E78.2 Mixed hyperlipidemia; I10 Essential (primary) hypertension; I25.5 Ischemic cardiomyopathy; Z87.891 Personal history of nicotine dependence | CPT/HCPCS: 99214 ==

== ENCOUNTER 2023-10-13 13:07 | Outpatient (CLI) | payer MEDICARE, OTHER, SELFPAY ==
--- NOTE | 2023-10-13 14:30 | USCV_ITS ---
Mario Mesa Age: 78 Gender: M : 1945 Exam Date: 10/13/2023 14:31 Ordering Phys: Bhanu Morrow MD ([email or web address]) Technologist: Benjamin Rowland [place] [facility] [place]: [place] BP: 126 / 72 HR: 49 Rhythm: Sinus Technical Quality: Adequate MEASUREMENTS (Male / Female) Normal Values 2D ECHO LVOT Diameter 2.0 cm LV Ejection Fraction MOD 2C 61.2 % LV Ejection Fraction 2C AL 60.3 % LA Diameter 3.9 cm LA Width 3.5 cm LA Height 4.1 cm RA Width 3.3 cm RA Height 3.8 cm Aorta at Sinotubular Diameter 2.6 cm IVC Diameter 1.7 cm M-MODE Aortic Annulus Diameter 2.8 cm LA Ao Ratio MM 1.4 MV E Point Septal Separation 0.5 cm DOPPLER AV Peak Velocity 177.3 cm/s LVOT Peak Velocity 111.0 cm/s AV Area Cont Eq vti 2.0 cm squared AV Area Cont Eq pk 2.0 cm squared MV Peak Velocity 110.0 cm/s MV Area PHT 2.5 cm squared Mitral E to A Ratio 0.7 MV E' Velocity 32.0 cm/s Mitral E to MV E' Ratio 10.4 Mitral E to LV E' Lateral Ratio 9.5 Mitral E to LV E' Septal Ratio 11.6 Right Atrial Pressure 3.0 mmHg PV Peak Velocity 89.0 cm/s RV Acceleration Time 0.1 s RV Ejection Time 0.3 s RV AcT/ET 0.4 FINDINGS Left Ventricle Normal left ventricular size and systolic function, EF 66 %. Mild left ventricular hypertrophy. No regional wall motion abnormalities. Mild left ventricular hypertrophy. Grade I/IV diastolic dysfunction (abnormal relaxation filling pattern), normal to mildly elevated filling pressures. Right Ventricle The right ventricle is normal in size and function. Right Atrium The right atrium is normal in size. Left Atrium The left atrium is normal in size. Mitral Valve Thickened mitral valve. Moderate mitral annular calcification. Aortic Valve Thickened aortic valve. Aortic valve sclerosis. Tricuspid Valve No gross abnormalities noted Pulmonic Valve Pulmonic valve not well visualized. Pericardium Normal pericardium without effusion. Aorta Normal ascending aorta dimension. IVC Normal inferior vena cava. CONCLUSIONS Normal left ventricular size and systolic function, EF 66 %. Mild left ventricular hypertrophy. No regional wall motion abnormalities. Mild left ventricular hypertrophy. Grade I/IV diastolic dysfunction (abnormal relaxation filling pattern), normal to mildly elevated filling pressures. Thickened mitral valve. Moderate mitral annular calcification. Features of aortic valve sclerosis There is no pericardial effusion. There are no intracardiac masses. No similar previous studies are available for comparison Dr Bhanu Morrow MD [facility] (Electronically Signed) Final Date: 16 October 2023 17:01 S
== END 2023-10-13 13:08 | disposition home or self-care (01) ==
LOC: RAD 13:11
PROVIDERS: PCP Nurse Practitioner Family; Visit Provider Internal Medicine Cardiovascular Disease
DX: R06.09 Other forms of dyspnea (principal); I42.9 Cardiomyopathy, unspecified; I05.8 Other rheumatic mitral valve diseases
CPT/HCPCS: 93306

== ENCOUNTER → 2024-04-03 10:30 | Outpatient (BNVA) | payer MEDICARE, OTHER, SELFPAY | PROVIDERS: PCP Nurse Practitioner Family; Visit Provider Internal Medicine Cardiovascular Disease | DX: I25.118 Atherosclerotic heart disease of native coronary artery with other forms of angina pectoris (principal); E78.2 Mixed hyperlipidemia; I11.0 Hypertensive heart disease with heart failure; I50.32 Chronic diastolic (congestive) heart failure | CPT/HCPCS: 99214 ==

== ENCOUNTER → 2024-10-23 10:15 | Outpatient (BNVA) | payer MEDICARE, OTHER, SELFPAY | PROVIDERS: PCP Nurse Practitioner Family; Visit Provider Nurse Practitioner Family | DX: I25.118 Atherosclerotic heart disease of native coronary artery with other forms of angina pectoris (principal); I11.0 Hypertensive heart disease with heart failure; I50.32 Chronic diastolic (congestive) heart failure; Z87.891 Personal history of nicotine dependence | CPT/HCPCS: 99213 ==

== ENCOUNTER → 2025-05-01 11:10 | Outpatient (BNVA) | payer MEDICARE, OTHER, SELFPAY | PROVIDERS: PCP Nurse Practitioner Family; Visit Provider Internal Medicine Cardiovascular Disease | DX: I25.10 Atherosclerotic heart disease of native coronary artery without angina pectoris (principal); I11.0 Hypertensive heart disease with heart failure; I50.20 Unspecified systolic (congestive) heart failure; E78.5 Hyperlipidemia, unspecified; Z79.02 Long term (current) use of antithrombotics/antiplatelets; Z87.891 Personal history of nicotine dependence | CPT/HCPCS: 99214 ==